=== PATIENT | male | born 1970 | race Hispanic/Latino ===

== ENCOUNTER 2019-01-11 23:26 | Inpatient (IN) | payer OTHER ==
[~2019-01-11] VITALS: Ht 162.6 cm; Wt 88.2 kg
[2019-01-11] MEDS ORDERED: IBUPROFEN 600 MG TABLET ONE (23:51)
[2019-01-11] MEDS ORDERED: ACETAMINOPHEN EXTRA STRENGTH 500 MG TABLET ONE (23:51)
[2019-01-11] MEDS ORDERED: SODIUM CHLORIDE 0.9% 1000ML 2,000 ML IV ONE (23:52)
[2019-01-11] MEDS ORDERED: ONDANSETRON HCL 4 MG/2 ML VIAL ONE (23:54)
[2019-01-11] MEDS ORDERED: METOCLOPRAMIDE 10 MG/2 ML VIAL ONE (23:54)
[2019-01-11 23:57] LABS: BASOPHILS % (AUTO) 0.3 % (0.0-5.0); EOSINOPHILS % (AUTO) 0.1 % (0.0-8.0); HEMATOCRIT 45.6 % (42-54); LYMPHOCYTES % (AUTO) 19.9 % (21.0-51.0); MEAN CORPUSCULAR HEMOGLOBIN 27.4 pg (27.0-33.0); MEAN CORPUSCULAR HGB CONC 33.7 g/dL (32.0-36.0); MEAN CORPUSCULAR VOLUME 81.3 fL (79-99); MONOCYTES % (AUTO) 1.3 % (3.0-13.0); NEUTROPHILS % (AUTO) 78.4 % (40.0-77.0); NUCLEATED RED BLOOD CELLS 0.1 % (0.0-0.19); PLATELET COUNT (AUTO) 220 K/uL (130-400); RED BLOOD CELL COUNT(AUTO) 5.61 MIL/uL (4.50-6.20); RED CELL DISTRIBUTION WIDTH 13.9 % (11.0-15.5); WHITE BLOOD COUNT (AUTO) 9.5 K/uL (4.8-10.8)
[2019-01-12] VITALS (27 sets, daily range): BP systolic 80–168; BP diastolic 42–95
[2019-01-12 00:06] LABS: CREATININE 0.8 mg/dL (0.5-1.5); POTASSIUM 3.9 mmol/L (3.5-5.1)
[2019-01-12 00:10] LABS: ALBUMIN 3.8 g/dL (3.5-5.0); BILIRUBIN,TOTAL 0.9 mg/dL (0.2-1.0); INR 1.02 (0.85-1.15); PARTIAL THROMBOPLASTIN TIME 27.6 SEC (26.3-35.5); PROTHROMBIN TIME 10.7 SEC (9.6-11.6); TOTAL PROTEIN, SERUM 7.6 g/dL (6.0-8.3)
[2019-01-12] MEDS ORDERED: SODIUM CHLORIDE 0.9% 1000ML 1,000 ML IV ONE (00:21)
[2019-01-12] MEDS ORDERED: ZOSYN 3.375GM+NS 50ML 50 ML IV ONE (01:33)
[2019-01-12] MEDS ORDERED: MORPHINE SULFATE 4 MG/1ML SYG IV PRN (02:15)
[2019-01-12] MEDS ORDERED: ONDANSETRON HCL 4 MG/2 ML VIAL IV PRN (02:15)
[2019-01-12] MEDS ORDERED: ACETAMINOPHEN 325 MG TAB PO PRN ×2 (02:15)
[2019-01-12] MEDS ORDERED: MORPHINE SULFATE 2 MG/ML 1ML SYG IV PRN (02:15)
[2019-01-12] MEDS: SODIUM CHLORIDE 0.9% 1000ML 1,000 ML IV SCH ×2 (04:07→12:42)
[2019-01-12] MEDS ORDERED: METF-444 PO (04:50)
[2019-01-12] MEDS ORDERED: LISI-613 PO (04:50)
[2019-01-12] MEDS ORDERED: ASPI-1012 PO (04:50)
[2019-01-12] MEDS: INSULIN HUMULIN R 100 UNIT/ML 3ML SQ SCH ×4 (07:30→21:00)
[2019-01-12] MEDS: FAMOTIDINE/PF 20 MG/2 ML VIAL IV SCH ×2 (08:51→23:03)
[2019-01-12] MEDS: ZOSYN 3.375GM+NS 50ML 50 ML IV SCH ×2 (08:56→17:11)
[2019-01-12] MEDS ORDERED: PROPOFOL 10 MG/ML 20ML VIAL IV ONE (13:22)
[2019-01-12] MEDS ORDERED: DEXAMETHASONE SOD PHOSPHATE 10MG/ML 1ML VIAL ONE (13:22)
[2019-01-12] MEDS ORDERED: ONDANSETRON HCL 4 MG/2 ML VIAL ONE (13:22)
[2019-01-12] MEDS ORDERED: FENTANYL CITRATE PF 50 MCG/1 ML 2ML VIAL ONE (13:22)
[2019-01-12] MEDS ORDERED: MIDAZOLAM HCL 1 MG/ML 2ML VIAL ONE (13:22)
[2019-01-12] MEDS ORDERED: LIDOCAINE PF 2% 5ML ABBOJECT ONE (13:22)
[2019-01-12] MEDS ORDERED: ROCURONIUM 10MG/1ML SYR 10 MG/ML ML ONE (13:23)
[2019-01-12] MEDS ORDERED: BUPIVACAINE/PF 0.25% 30ML VIAL IJ ONE (13:42)
[2019-01-12] MEDS ORDERED: LIDOCAINE 1%-EPI 1:100,000 20 ML VIAL IJ ONE (13:43)
[2019-01-12] MEDS ORDERED: SUCCINYLCHOLINE 200MG/10ML SYR ONE (14:08)
[2019-01-12] MEDS ORDERED: GLYCOPYRROLATE 1 MG/5 ML SYRINGE ONE (14:13)
[2019-01-12] MEDS ORDERED: NEOSTIGMINE 5MG/5ML SYR IV ONE (14:13)
[2019-01-12] MEDS ORDERED: METOCLOPRAMIDE 10 MG/2 ML VIAL ONE (14:36)
[2019-01-12] MEDS ORDERED: ESMOLOL HCL 10 MG/ML 10 ML VIAL ONE (14:46)
[2019-01-12] MEDS ORDERED: MEPERIDINE-PF 25 MG/ML SYG ONE ×2 (14:52→15:11)
[2019-01-12] MEDS ORDERED: LABETALOL HCL 5 MG/ML 20ML VIAL IV ONE (14:59)
[2019-01-12] MEDS ORDERED: OXYCODONE/ACETAMIN 5/325MG TAB PO PRN (16:00)
[2019-01-13] MEDS: ZOSYN 3.375GM+NS 50ML 50 ML IV SCH ×2 (00:27→08:45)
[2019-01-13 04:28] VITALS: BP 101/64
[2019-01-13 05:26] LABS: HEMATOCRIT 37.4 % (42-54); LYMPHOCYTES % (AUTO) 18.8 % (21.0-51.0); MEAN CORPUSCULAR HEMOGLOBIN 27.9 pg (27.0-33.0); MEAN CORPUSCULAR HGB CONC 33.8 g/dL (32.0-36.0); MEAN CORPUSCULAR VOLUME 82.4 fL (79-99); NEUTROPHILS % (AUTO) 78.2 % (40.0-77.0); PLATELET COUNT (AUTO) 211 K/uL (130-400); RED BLOOD CELL COUNT(AUTO) 4.54 MIL/uL (4.50-6.20); WHITE BLOOD COUNT (AUTO) 8.6 K/uL (4.8-10.8)
[2019-01-13 05:39] LABS: CREATININE 0.7 mg/dL (0.5-1.5); POTASSIUM 4.2 mmol/L (3.5-5.1)
[2019-01-13] MEDS: SODIUM CHLORIDE 0.9% 1000ML 1,000 ML IV SCH (06:26)
[2019-01-13] MEDS: INSULIN HUMULIN R 100 UNIT/ML 3ML SQ SCH ×2 (07:30→11:30)
[2019-01-13] MEDS ORDERED: TYL3 PO (08:38)
[2019-01-13] MEDS: FAMOTIDINE/PF 20 MG/2 ML VIAL IV SCH (08:45)
[2019-01-13] MEDS: LISINOPRIL 20 MG TABLET PO SCH ×2 (08:45→08:50)
[2019-01-13] MEDS ORDERED: ASPIRIN 325 MG TABLET PO SCH (09:00)
[2019-01-13 09:07] VITALS: BP 103/66
[2019-01-13 11:54] VITALS: BP 101/64
== END 2019-01-13 16:25 | disposition home or self-care (01) | DRG 343 ==
LOC: EDH 23:26 → EDHIP 23:27 → UNDOADMIN 01-12 01:40 → 3BH 01-12 03:55
PROVIDERS: ADMIT Internal Medicine; ATTEND Internal Medicine
PROC: 0DTJ4ZZ Resection of Appendix, Percutaneous Endoscopic Approach (ICD-10-PCS; principal; 2019-01-12 13:48)
DX: K35.80 Unspecified acute appendicitis (principal); E11.9 Type 2 diabetes mellitus without complications; F17.210 Nicotine dependence, cigarettes, uncomplicated; I10 Essential (primary) hypertension; Z90.49 Acquired absence of other specified parts of digestive tract
CPT/HCPCS: 36415; 74176; 80048; 80053; 82948; 83605; 83690; 84484; 85025; 85610; 85730; 87040; 87804; 88304; 93005; A4344; G0378; J0330; J1100; J2001; J2175; J2250; J2270; J2405; J2543; J2704; J2710; J2765; J3010; J3490; J7030